=== PATIENT | male | born 1980 | race American Indian/Alaskan Native ===

== ENCOUNTER 2021-08-28 10:17 | Outpatient (CLI) | payer OTHER ==
--- NOTE | 2021-08-28 14:34 | Ultrasound Report ---
ULTRASOUND RENAL INDICATION / CLINICAL INFORMATION: POLYCYSTIC KIDNEY DISEASE. COMPARISON: None available. FINDINGS: RIGHT KIDNEY: Length = 19.1 cm. - Echogenicity: Normal. - Cortical Thickness: Normal. - Hydronephrosis: None. - Cyst / Mass: Polycystic. - Stones: None seen. LEFT KIDNEY: Length = 18.0 cm. - Echogenicity: Normal. - Cortical Thickness: Normal. - Hydronephrosis: None. - Cyst / Mass: Polycystic. - Stones: None seen. URINARY BLADDER: No significant abnormality. FREE FLUID: None. ADDITIONAL FINDINGS: None. IMPRESSION: 1. Enlarged polycystic kidneys. No evidence of solid renal mass. Scribed by: Annelise Clinton RDMS, RVT Scribed: 08/28/2021 12:41 PM I have reviewed the images, agree with this report, and edited this report as needed. Signer Name: Wale Griggs DO Signed: 08/28/2021 2:29 PM Workstation Name: [id number]
== END 2021-08-28 10:18 | disposition home or self-care (01) ==
LOC: US 10:17
PROVIDERS: ATTEND Internal Medicine
DX: Q61.3 Polycystic kidney, unspecified (principal); N18.9 Chronic kidney disease, unspecified
CPT/HCPCS: 76770